=== PATIENT | male | born 1945 | race Caucasian/White ===

== ENCOUNTER 2021-04-07 14:29 | Observation (INO) | payer BC, OTHER ==
[~2021-04-07] VITALS: Ht 180.3 cm; Wt 100.9 kg
[~2021-04-07 14:29] MED LIST: ASA81 MG; DIABETA5 M1; Z.0.AMLODIPINE BESY1 PO; Z.0.BENAZEPRIL HCL20 PO; Z.0.GLUCOPHAGE500 MG; Z.0.LOPRESSOR50 MG; Z.0.LOVASTATIN40 MG; Z.0.OMEPRAZOLE20 M1
[2021-04-07] MEDS ORDERED: GLUCAGON FOR INJ 1 MG VIAL IV ONE (15:00)
[2021-04-07] MEDS ORDERED: CALCIUM GLUCONATE 10% INJ 4.65 MEQ in SODIUM CHLORIDE 0.9% 50ML 50 ML IV ONE (15:00)
[2021-04-07 15:03] LABS: BASOPHILS # (AUTO) 0.1 (0.0-0.1); BASOPHILS % 0.6 % (0.0-1.0); EOSINOPHILS # (AUTO) 0.3 (0.0-0.4); HEMATOCRIT 35.4 % (38.2-49.6); HEMOGLOBIN 11.7 g/dL (14.0-18.0); LYMPHOCYTES # (AUTO) 1.4 (1.0-3.2); LYMPHOCYTES % 16.5 % (18.0-39.1); MEAN CORPUSCULAR HGB CONC 33.1 g/dL (31-35); MEAN CORPUSCULAR VOLUME 93.7 fL (81-99); MONOCYTES # (AUTO) 0.9 (0.2-0.8); MONOCYTES % 10.5 % (4.4-11.3); NEUTROPHILS % 69.1 % (38.7-80.0); PLATELET COUNT 210 x10e3/uL (140-360); RED BLOOD COUNT 3.78 x10e6/uL (4.3-5.7); RED CELL DISTRIBUTION WIDTH 12.1 % (11.7-14.4)
[2021-04-07 15:19] LABS: INR 1.35; PROTHROMBIN TIME 17.4 seconds (11.9-14.5)
[2021-04-07 15:33] LABS: ALBUMIN 3.7 g/dL (3.5-5.0); ALBUMIN/GLOBULIN RATIO 0.9 (0.8-2.0); ANION GAP 16.9 mmol/L (8-16); CALCIUM 9.2 mg/dL (8.4-10.2); CREATININE, SERUM 3.26 mg/dL (0.72-1.25); POTASSIUM 4.9 mmol/L (3.5-5.1)
[2021-04-07 15:36] LABS: CREATINE KINASE MB 1.1 ng/mL (0-5.0)
[2021-04-07] MEDS ORDERED: ONDANSETRON HCL INJ 2MG/ML 2ML 2 MG/ML VIAL IV PRN (16:00)
[2021-04-07] MEDS ORDERED: MORPHINE SULFATE INJ 4 MG/ML INJ 1ML IV PRN (16:00)
[2021-04-07] MEDS ORDERED: MIDAZOLAM HCL 2 MG/2 ML VIAL ONE ×3 (17:02→20:21)
[2021-04-07] MEDS ORDERED: GENTAMICIN SULFATE 40 MG/ML 2 ML VIAL ONE (17:03)
[2021-04-07] MEDS ORDERED: FENTANYL CITRATE/PF 100MCG/2 ML INJ ONE (17:03)
[2021-04-07] MEDS ORDERED: LIDOCAINE 1% W/EPINEPHRINE 20 ML VIAL ONE (17:03)
[2021-04-07] MEDS ORDERED: Vancomycin IV 1 GM VIAL ONE (17:04)
[2021-04-07] MEDS ORDERED: SODIUM CHLORIDE 0.9% 1000ML 2,000 ML ONE (17:04)
[2021-04-07] MEDS ORDERED: SODIUM CHLORIDE 0.9% 250ML 250 ML ONE (17:04)
[2021-04-07] MEDS ORDERED: SODIUM CHLORIDE 0.9% 500ML 500 ML ONE (17:04)
[2021-04-07] MEDS ORDERED: LIDOCAINE HCL 2% LOCAL 20 ML VIAL ONE (18:12)
[2021-04-07] MEDS ORDERED: MICROFIBRILLER COLLAGEN HEMOSTAT 1 GM POWDER TP ONE (19:50)
[2021-04-07 21:40] VITALS: BP 164/66
[2021-04-07 21:45] VITALS: BP 164/66
[2021-04-07] MEDS ORDERED: FUROSEMIDE40 MG PO (22:39)
[2021-04-07] MEDS ORDERED: ELIQUIS2.5 MG PO (22:39)
[2021-04-07] MEDS ORDERED: DOCUSATE SODIU100 MG PO (23:37)
[2021-04-07] MEDS ORDERED: LOSARTAN POTASS25 MG PO (23:37)
[2021-04-07] MEDS ORDERED: ALOGLIPTIN25 MG PO (23:37)
[2021-04-07] MEDS ORDERED: ATORVASTATIN CA20 MG PO (23:37)
[2021-04-07] MEDS ORDERED: B12 ACTIVE1000 MCG PO (23:37)
[2021-04-08 00:16] VITALS: BP 144/59
[2021-04-08 05:20] VITALS: BP 145/77
[2021-04-08 05:49] LABS: BASOPHILS % 0.4 % (0.0-1.0); EOSINOPHILS # (AUTO) 0.2 (0.0-0.4); EOSINOPHILS % 2.8 % (0.0-6.0); HEMOGLOBIN 11.4 g/dL (14.0-18.0); LYMPHOCYTES # (AUTO) 0.7 (1.0-3.2); LYMPHOCYTES % 9.3 % (18.0-39.1); MEAN CORPUSCULAR HEMOGLOBIN 31.1 pg (28-32); MEAN CORPUSCULAR HGB CONC 33.5 g/dL (31-35); MEAN CORPUSCULAR VOLUME 92.6 fL (81-99); MONOCYTES # (AUTO) 0.7 (0.2-0.8); MONOCYTES % 9.5 % (4.4-11.3); NEUTROPHILS # (AUTO) 5.8 (2.1-6.9); NEUTROPHILS % 77.7 % (38.7-80.0); PLATELET COUNT 211 x10e3/uL (140-360); RED BLOOD COUNT 3.67 x10e6/uL (4.3-5.7); RED CELL DISTRIBUTION WIDTH 12.1 % (11.7-14.4)
[2021-04-08 06:13] LABS: ALBUMIN 3.6 g/dL (3.5-5.0); ANION GAP 17.9 mmol/L (8-16); CREATININE, SERUM 2.97 mg/dL (0.72-1.25); POTASSIUM 4.9 mmol/L (3.5-5.1)
[2021-04-08 06:39] LABS: CREATINE KINASE MB 1.2 ng/mL (0-5.0)
[2021-04-08 07:52] VITALS: BP 147/51
[2021-04-08 10:50] VITALS: BP 147/51
[2021-04-08 11:18] VITALS: BP 149/54
[2021-04-08 15:18] LABS: CREATINE KINASE MB 1.1 ng/mL (0-5.0)
[2021-04-08 15:20] VITALS: BP 149/59
== END 2021-04-08 16:00 | disposition home or self-care (01) ==
LOC: ER 14:47 → ERHOLD 15:55 → MED/SURG2 21:35
PROVIDERS: ADMIT Internal Medicine; ATTEND Internal Medicine
DX: I44.2 Atrioventricular block, complete (principal); R00.1 Bradycardia, unspecified; Z86.73 Personal history of transient ischemic attack (TIA), and cerebral infarction without residual deficits; E11.9 Type 2 diabetes mellitus without complications; Z96.651 Presence of right artificial knee joint; I44.30 Unspecified atrioventricular block; I50.22 Chronic systolic (congestive) heart failure; Z20.822 Contact with and (suspected) exposure to COVID-19; I12.9 Hypertensive chronic kidney disease with stage 1 through stage 4 chronic kidney disease, or unspecified chronic kidney disease; I25.5 Ischemic cardiomyopathy; N18.30 Chronic kidney disease, stage 3 unspecified
CPT/HCPCS: 33208; 33225; 36415 ×2; 71045; 80053 ×2; 82550 ×2; 82553 ×2; 83880; 84484 ×2; 85025 ×2; 85610; 93005; 99284; C1769; C1898 ×2; C1900; C2621; G0378 ×2; J0610; J1580; J1610; J2001; J2250; J3010; J3370; J7030; J7040; J7050; U0002; 99152; 99153

== ENCOUNTER → 2022-08-10 | Day surgery (SDC) | payer MEDICARE ==
[2022-08-06 10:16] LABS: BASOPHILS % 0.3 % (0.0-1.0); EOSINOPHILS # (AUTO) 0.3 (0.0-0.4); EOSINOPHILS % 2.8 % (0.0-6.0); HEMATOCRIT 38.3 % (38.2-49.6); HEMOGLOBIN 12.1 g/dL (14.0-18.0); LYMPHOCYTES # (AUTO) 1.8 (1.0-3.2); LYMPHOCYTES % 18.3 % (18.0-39.1); MEAN CORPUSCULAR HEMOGLOBIN 29.4 pg (28-32); MEAN CORPUSCULAR HGB CONC 31.6 g/dL (31-35); MEAN CORPUSCULAR VOLUME 93.2 fL (81-99); MONOCYTES # (AUTO) 0.7 (0.2-0.8); MONOCYTES % 6.7 % (4.4-11.3); NEUTROPHILS % 71.6 % (38.7-80.0); PLATELET COUNT 216 x10e3/uL (140-360); RED BLOOD COUNT 4.11 x10e6/uL (4.3-5.7); RED CELL DISTRIBUTION WIDTH 14.1 % (11.7-14.4)
[2022-08-06 10:36] LABS: ALBUMIN 3.7 g/dL (3.5-5.0); ALBUMIN/GLOBULIN RATIO 1.1 (0.8-2.0); ANION GAP 17.1 mmol/L (8-16); CALCIUM 9.4 mg/dL (8.4-10.2); CHOL/HDL RATIO 4.2 (3.9-4.7); CREATININE, SERUM 2.29 mg/dL (0.72-1.25); POTASSIUM 4.1 mmol/L (3.5-5.1)
[2022-08-06 10:55] LABS: INR 1.21; PROTHROMBIN TIME 16.4 seconds (11.9-14.5)
[~2022-08-10] VITALS: Ht 182.9 cm; Wt 99.8 kg
[2022-08-10] VITALS (14 sets, daily range): BP systolic 110–141; BP diastolic 55–87
[~2022-08-10] MED LIST changes: +ALOGLIPTIN25 MG PO; +ATORVASTATIN CA20 MG PO; +B12 ACTIVE1000 MCG PO; -DIABETA5 M1; +DIABETA5 M1 PO; +DOCUSATE SODIU100 MG PO; +ELIQUIS2.5 MG PO; +FENTANYL CITRATE/PF 100MCG/2 ML INJ ONE; +FLOMAX0.4 MG PO; +FUROSEMIDE40 MG PO; +HEPARIN SOD (PORCINE) 1000 UNIT/ML 30ML ONE; +HEPARIN SOD/SOD CHLORIDE 2,000 ML ONE; +IOPAMIDOL 370 MG/ML 100 ML INFUS..BTL INJ ONE; +LIDOCAINE HCL 2% LOCAL INJ 5 ML SDV VIAL INJ ONE; +LOSARTAN POTASS25 MG PO; +MIDAZOLAM HCL 2 MG/2 ML VIAL ONE; +NITROGLYCERIN/D5W 200 MCG/ML 250 ML ONE; +SODIUM CHLORIDE 0.9% 1000ML 1,000 ML ONE; +VERAPAMIL HCL 2.5 MG/ML 2 ML VIAL ONE; -Z.0.LOPRESSOR50 MG; +Z.0.LOPRESSOR50 MG PO
== END | disposition home or self-care (01) ==
LOC: CATH LAB 08:13
PROVIDERS: ATTEND Internal Medicine Interventional Cardiology
DX: I25.110 Atherosclerotic heart disease of native coronary artery with unstable angina pectoris (principal); R94.39 Abnormal result of other cardiovascular function study; I11.0 Hypertensive heart disease with heart failure; I50.20 Unspecified systolic (congestive) heart failure; E78.5 Hyperlipidemia, unspecified; I65.23 Occlusion and stenosis of bilateral carotid arteries; R42 Dizziness and giddiness; I48.91 Unspecified atrial fibrillation; E13.69 Other specified diabetes mellitus with other specified complication; Z71.82 Exercise counseling; Z71.3 Dietary counseling and surveillance; Z01.812 Encounter for preprocedural laboratory examination; Z79.02 Long term (current) use of antithrombotics/antiplatelets; Z79.4 Long term (current) use of insulin; Z79.899 Other long term (current) drug therapy; Z68.30 Body mass index [BMI] 30.0-30.9, adult; Z95.2 Presence of prosthetic heart valve; Z83.3 Family history of diabetes mellitus
CPT/HCPCS: 36415 ×2; 80053; 80061; 82948; 85025; 85610; 93458; J1644; J2001; J2250; J3010; J7030; Q9967